=== PATIENT | male | born 1950 | race Caucasian/White ===

== ENCOUNTER → 2017-05-10 | Outpatient (CLI) | payer OTHER | END | disposition home or self-care (01) | LOC: GMAM 10:59 | PROVIDERS: ATTEND Family Medicine | DX: R94.5 Abnormal results of liver function studies (principal); R53.83 Other fatigue ==

== ENCOUNTER → 2017-05-14 | Outpatient (CLI) | payer OTHER | END | disposition home or self-care (01) | LOC: GMAM 13:54 | PROVIDERS: ATTEND Family Medicine | DX: Z20.820 Contact with and (suspected) exposure to varicella (principal) ==

== ENCOUNTER → 2017-06-08 | Outpatient (CLI) | payer OTHER | END | disposition home or self-care (01) | LOC: GMAM 12:16 | PROVIDERS: ATTEND Family Medicine | DX: R79.9 Abnormal finding of blood chemistry, unspecified (principal) ==

== ENCOUNTER → 2018-01-11 | Outpatient (CLI) | payer OTHER | LOC: GMAM 10:28 | PROVIDERS: ATTEND Family Medicine | DX: R53.83 Other fatigue (principal) ==

== ENCOUNTER → 2018-01-24 | Outpatient (CLI) | payer OTHER ==
--- NOTE | 2018-01-24 13:05 | US ---
EXAM DESCRIPTION: Liver: ULTRASOUND. CLINICAL HISTORY: ABNORMAL RESULTS OF LIVER FUNCTION STUDIES COMPARISON: Ultrasound right upper quadrant 01/22/2012. TECHNIQUE: Transabdominal scannin-dimensional and Doppler modes. FINDINGS: Gallbladder: Echogenic stone measuring 1.0 cm. Appears to be fixed. No fluid around the gallbladder. No wall thickening. 2.5 mm. Non-tender with transducer pressure. Common bile duct: caliber 4.3 mm within normal limits. Liver: Increased echogenicity; contour liver capsule smooth where seen. No fluid around the liver. Intrahepatic biliary ducts normal caliber. Doppler hepatopedal flow portal vein.. Long axis right lobe 16.5 Pancreas: Not well visualized due to bowel gas. Duct not seen. Right kidney: long axis measures 11.3 cm. Normal Echogenicity. Normal cortical thickness. No hydronephrosis IMPRESSION: 1. 1.0 cm gallstone appears to be fixed near the gallbladder neck. No wall thickening. No fluid. Nontender. Normal caliber of the common bile duct. Gallstone appears stable since the prior study. 2. Steatosis of the liver with minimal enlargement. Normal ducts, vascularity, contour. No ascites. Stable. 3. Normal ultrasound of the right kidney. 4. Abdominal aorta and pancreas obscured by intestinal gas. Electronically signed by: Dandy Krishnan MD 01/24/2018 1:03 PM CDT
== END ==
LOC: US 09:38
PROVIDERS: ATTEND Family Medicine
DX: R94.5 Abnormal results of liver function studies (principal); K80.20 Calculus of gallbladder without cholecystitis without obstruction; K76.0 Fatty (change of) liver, not elsewhere classified

== ENCOUNTER → 2019-02-20 | Outpatient (CLI) | payer OTHER | LOC: GMAM 10:38 | PROVIDERS: ATTEND Family Medicine | DX: Z12.5 Encounter for screening for malignant neoplasm of prostate (principal); E11.9 Type 2 diabetes mellitus without complications; I10 Essential (primary) hypertension ==

== ENCOUNTER → 2019-11-29 | Outpatient (CLI) | payer OTHER | LOC: GMAM 11:30 | PROVIDERS: ATTEND Family Medicine | DX: Z12.5 Encounter for screening for malignant neoplasm of prostate (principal); E55.9 Vitamin D deficiency, unspecified; E11.9 Type 2 diabetes mellitus without complications; I10 Essential (primary) hypertension ==

== ENCOUNTER → 2020-07-17 | Outpatient (CLI) | payer OTHER | LOC: GMAM 10:47 | PROVIDERS: ATTEND Family Medicine | DX: E55.9 Vitamin D deficiency, unspecified (principal) ==